=== PATIENT | male | born 1960 | race African-American/Black ===

== ENCOUNTER 2018-12-20 16:16 | Emergency (ER) | payer SELFPAY ==
[~2018-12-20] VITALS: Ht 172.7 cm; Wt 83.1 kg
[2018-12-20 16:30] VITALS: Ht 172.7 cm; Wt 83.1 kg
[2018-12-20 17:45] VITALS: BP 148/88
== END 2018-12-20 17:45 | disposition home or self-care (01) ==
LOC: ED 16:16
DX: G89.29 Other chronic pain (principal); M54.9 Dorsalgia, unspecified; Z76.0 Encounter for issue of repeat prescription; I10 Essential (primary) hypertension